=== PATIENT | male | born 1955 | race Caucasian/White ===

== ENCOUNTER 2020-09-13 17:15 | Emergency (ER) | payer BC ==
--- NOTE | 2020-09-13 18:07 | RAD ---
PORTABLE CHEST WITH TWO VIEWS LEFT RIBS: Date: 09-13-2020 PROVIDED CLINICAL HISTORY: Rib pain status post injury. FINDINGS: Cardiac and mediastinal silhouette is within normal limits. There is a displaced fracture of the left lateral 7th rib. Nondisplaced left lateral 6th and 8th rib fractures may also be present. There is b lunting of the left costophrenic angle that may reflect pleural fluid. There is no evidence for pneum othorax. The lungs are free of significant opacity. IMPRESSION: Displaced left sided 7th rib fracture with possible left pleural fluid. POS: [facility]
[2020-09-13] MEDS ORDERED: Ondansetron PF 4 MG/2 ML Vial ONE (18:47)
[2020-09-13] MEDS ORDERED: Morphine 2 MG/ML SYRINGE ONE ×2 (18:47→19:15)
[2020-09-13 18:53] LABS: #Basophils 0.1 thou/uL (0.0-0.2); #Eosinphils 0.1 thou/uL (0.0-0.7); #Lymphocytes 1.1 thou/uL (1.20-3.40); #Monocytes 0.7 thou/uL (0.11-0.59); #Neutrophils 6.4 thou/uL (1.40-6.50); %Basophils 1.2 % (0.0-1.0); %Eosinophils 0.6 % (0.0-10.0); %Lymphocytes 13.2 % (21.0-51.0); Hemoglobin 15.5 g/dL (14.0-18.0); Mean Corpuscular HGB CONC 33.4 g/dL (32.0-36.0); Mean Corpuscular Hemoglobin 32.4 pg (27.0-31.0); Mean Corpuscular Volume 96.9 fL (78.0-98.0); Mean Platelet Volume 7.1 fL (7.4-10.4); Platelet Count 195 thou/uL (130-400); RBC Distribution Width 12.2 % (11.5-14.5); Red Blood Cell (RBC) Count 4.78 mill/uL (4.70-6.10); White Blood Cell (WBC) Count 8.3 thou/uL (4.8-10.8)
[2020-09-13 19:01] LABS: PTT 28.2 sec (22.9-36.1); Prothrombin Time 13.2 sec (12.0-14.7)
[2020-09-13 19:10] LABS: ALT (SGPT) 27 U/L (8-55); AST (SGOT) 34 U/L (5-34); Albumin 4.2 g/dL (3.4-4.8); Alkaline Phosphatase 67 U/L (40-110); Anion Gap 19 mmol/L (10-20); BUN (Urea Nitrogen) 7 mg/dL (8.4-25.7); Calc. Creatinine Clearance 0 mL/min (70-130); Carbon Dioxide 21 mmol/L (23-31); Chloride 94 mmol/L (98-107); Globulin 2.9 g/dL (2.4-3.5); Glucose 108 mg/dL (80-115); Potassium 3.6 mmol/L (3.5-5.1); Protein, Total 7.1 g/dL (5.8-8.1); Sodium 130 mmol/L (136-145)
== END 2020-09-13 20:44 | disposition short-term general hospital (02) ==
LOC: NAV ERS 17:15
DX: S22.32XA Fracture of one rib, left side, initial encounter for closed fracture (principal); E87.1 Hypo-osmolality and hyponatremia; Z86.711 Personal history of pulmonary embolism; Z79.899 Other long term (current) drug therapy; Z79.82 Long term (current) use of aspirin; W18.30XA Fall on same level, unspecified, initial encounter
CPT/HCPCS: 36415; 80053; 85025; 85610; 85730; 86850; 86900; 86901; 96374; 96375; J2270; J2405